=== PATIENT | female | born 1980 | race American Indian/Alaskan Native ===

== ENCOUNTER 2017-05-05 16:55 | Outpatient (CLI) | payer MEDICAID ==
[2017-05-05 18:48] LABS: Bacteria,Urine 1+ /HPF (Negative); Bilirubin,Urine NEG (Negative); Blood,Urine MOD (Negative); Ketones,Urine NEG (Negative); Leukocyte Esterase,Urine TR (Negative); Mucus,Urine FEW /HPF; Nitrite,Urine NEG (Negative); Protein,Urine <15 mg/dL mg/dL (Negative); Urobilinogen,Urine < 2.0 mg/dL (<2.0)
[2017-05-05 19:13] LABS: Hematocrit 33.5 % (30.3-42.9); Hemoglobin 10.7 gm/dl (10.1-14.3); Mean Corpuscular HGB Conc 32 % (30-34); Mean Corpuscular Hemoglobin 29 pg (28-32); Mean Corpuscular Volume 90 fl (79-97); Platelet Count 220 K/mm3 (140-440); Red Blood Count 3.72 M/mm3 (3.65-5.03); Red Cell Distribution Width 15.4 % (13.2-15.2); White Blood Count 12.2 K/mm3 (4.5-11.0)
[2017-05-05 19:35] LABS: Alanine Aminotransferase 18 units/L (7-56); Lactate Dehydrogenase 143 units/L (91-180); Uric Acid 5.6 mg/dL (3.5-7.6)
[2017-05-06 23:45] VITALS: BP 104/56
== END 2017-05-05 21:30 | disposition home or self-care (01) ==
LOC: TRG 16:55
PROVIDERS: ATTEND Obstetrics & Gynecology
DX: O09.523 Supervision of elderly multigravida, third trimester (principal); O47.03 False labor before 37 completed weeks of gestation, third trimester; Z3A.36 36 weeks gestation of pregnancy
CPT/HCPCS: 36415; 81001; 82565; 83615; 84450; 84460; 84550; 85027

== ENCOUNTER 2018-02-07 23:54 | Emergency (ER) | payer MEDICAID | END 2018-02-08 02:10 | disposition left against medical advice (07) | LOC: ED 23:54 | DX: M79.606 Pain in leg, unspecified (principal); Z53.21 Procedure and treatment not carried out due to patient leaving prior to being seen by health care provider ==

== ENCOUNTER 2018-02-15 12:06 | Emergency (ER) | payer MEDICAID ==
[2018-02-15 12:58] VITALS: BP 146/93
--- NOTE | 2018-02-15 14:56 | Emergency Department Report ---
ED Extremity Problem HPI - General Chief complaint: Extremity Injury, Lower Stated complaint: FRACTURED ANKLE Time Seen by Provider: 02/15/18 14:48 Source: patient Mode of arrival: Ambulatory Limitations: No Limitations - History of Present Illness Initial comments: Patient is a 37-year-old female who is one-week status post injury to the right lower extremity. Patient states she's been having difficulty walking. Patient saw her primary care physician had x-ray done but wasn't told until today that there was a fracture. Patient has a report from her doctor's office to states that she has a distal right lateral malleolar avulsion fracture. Patient is cranial swelling or 6 out of 10 pain. Severity scale (0 -10): 6 - Related Data Home Medications Medication Instructions Recorded Confirmed Last Taken Labetalol [Normodyne TAB] 100 mg PO BID 05/06/17 05/06/17 05/05/17 23:00 Tablet 1 tab PO DAILY 05/06/17 05/06/17 05/05/17 23:00 Previous Rx's Medication Instructions Recorded Last Taken Type Meclizine [Antivert] 25 mg PO TID PRN #20 tablet 02/24/16 Unknown Rx Ondansetron [Zofran ODT TAB] 8 mg PO Q8HR #20 tab.rapdis 02/24/16 Unknown Rx Ferrous Sulfate [Feosol 325 MG tab] 325 mg PO BID #60 tablet 05/07/17 Unknown Rx HYDROcodone/APAP 5-325 [Nichols 1 each PO Q6HR PRN #30 tablet 05/07/17 Unknown Rx 5/325] Ibuprofen [Motrin] 800 mg PO Q8HR PRN #30 tablet 05/07/17 Unknown Rx Vit Calc,Iron,Folic 1 each PO DAILY #30 tablet 05/07/17 Unknown Rx [ Vitamins] Ibuprofen [Motrin] 800 mg PO Q8HR PRN #20 tablet 02/15/18 Unknown Rx Allergies Allergy/AdvReac Type Severity Reaction Status Date / Time No Known Allergies Allergy Unverified 02/24/16 09:18 ED Review of Systems ROS: Stated complaint: FRACTURED ANKLE Other details as noted in HPI Comment: All other systems reviewed and negative ED Past Medical Hx - Past Medical History Previous Medical History?: Yes Hx Hypertension: Yes (chronic HTN) Hx Congestive Heart Failure: No Hx Diabetes: No Hx Deep Vein Thrombosis: No Hx Renal Disease: No Hx Sickle Cell Disease: No Hx Seizures: No Hx Asthma: No Hx COPD: No Hx HIV: No - Surgical History Past Surgical History?: Yes Additional Surgical History: . tubal ligation - Social History Smoking Status: Never Smoker Substance Use Type: None - Medications Home Medications: Home Medications Medication Instructions Recorded Confirmed Last Taken Type Meclizine [Antivert] 25 mg PO TID PRN #20 tablet 02/24/16 05/06/17 Unknown Rx Ondansetron [Zofran ODT TAB] 8 mg PO Q8HR #20 tab.rapdis 02/24/16 05/06/17 Unknown Rx Labetalol [Normodyne TAB] 100 mg PO BID 05/06/17 05/06/17 05/05/17 23:00 History Tablet 1 tab PO DAILY 05/06/17 05/06/17 05/05/17 23:00 History Ferrous Sulfate [Feosol 325 MG tab] 325 mg PO BID #60 tablet 05/07/17 Unknown Rx HYDROcodone/APAP 5-325 [Nichols 1 each PO Q6HR PRN #30 tablet 05/07/17 Unknown Rx 5/325] Ibuprofen [Motrin] 800 mg PO Q8HR PRN #30 tablet 05/07/17 Unknown Rx Vit Calc,Iron,Folic 1 each PO DAILY #30 tablet 05/07/17 Unknown Rx [ Vitamins] Ibuprofen [Motrin] 800 mg PO Q8HR PRN #20 tablet 02/15/18 Unknown Rx ED Physical Exam - General Limitations: No Limitations General appearance: alert, in no apparent distress - Head Head exam: Present: atraumatic, normocephalic - Eye Eye exam: Present: normal appearance - ENT ENT exam: Present: mucous membranes moist - Neck Neck exam: Present: normal inspection - Respiratory Respiratory exam: Present: normal lung sounds bilaterally. Absent: respiratory distress - Cardiovascular Cardiovascular Exam: Present: regular rate, normal rhythm. Absent: systolic murmur, diastolic murmur, rubs, gallop - GI/Abdominal GI/Abdominal exam: Present: soft, normal bowel sounds. Absent: distended, tenderness - Extremities Exam Extremities exam: Present: normal inspection, tenderness (patient has tenderness and swelling to the right lateral malleolus) - Back Exam Back exam: Present: normal inspection - Neurological Exam Neurological exam: Present: alert, oriented X3 - Psychiatric Psychiatric exam: Present: normal affect, normal mood - Skin Skin exam: Present: warm, dry, intact, normal color. Absent: rash ED Course Vital Signs 02/15/18 12:56 Temperature 98.5 F Pulse Rate 73 Respiratory 18 Rate Blood Pressure 146/93 [Right] O2 Sat by Pulse 97 Oximetry ED Medical Decision Making - Medical Decision Making Patient was placed in a posterior short leg cast with side stirrups will be discharged home follow-up with Dr. Chaudhari. Critical care attestation.: If time is entered above; I have spent that time in minutes in the direct care of this critically ill patient, excluding procedure time. ED Disposition Clinical Impression: Ankle fracture Qualifiers: Encounter type: subsequent encounter Fracture type: closed Laterality: right Fracture healing: with routine healing Qualified Code(s): S82.891D - Other fracture of right lower leg, subsequent encounter for closed fracture with routine healing Disposition: DC-01 TO HOME OR SELFCARE Is pt being admited?: No Does the pt Need Aspirin: No Condition: Stable Instructions: Ankle Fracture (ED) Referrals: PEACE CHAUDHARI MD [Staff Physician] - 3-5 Days
== END 2018-02-15 15:35 | disposition home or self-care (01) ==
LOC: ED 12:06
DX: S82.891A Other fracture of right lower leg, initial encounter for closed fracture (principal); I10 Essential (primary) hypertension; X58.XXXA Exposure to other specified factors, initial encounter; Y93.89 Activity, other specified; Y92.89 Other specified places as the place of occurrence of the external cause; Y99.8 Other external cause status
CPT/HCPCS: 99282; 99283

== ENCOUNTER 2021-05-07 20:30 | Emergency (ER) | payer MEDICAID | END 2021-05-07 21:20 | disposition left against medical advice (07) | LOC: ED 20:30 | DX: R05 Cough (principal); Z53.21 Procedure and treatment not carried out due to patient leaving prior to being seen by health care provider ==